=== PATIENT | female | born 1955 ===

== ENCOUNTER → 2018-02-13 | Outpatient (CLI) | payer BC ==
[~2018-02-13] MED LIST: BUSP15TA69 PO; DEXA0.5E5 PO; FLUO-177 PO; HYDR200T42 PO; LIDO4SOL3 TP; PANT40TA65 PO; ZOLP-350 PO
--- NOTE | 2018-02-13 17:27 | RADIOLOGY IMAGING REPORT ---
FACILITY: [facility] - [place] PATIENT NAME: Aida Russell : 1955 MR: [id number] V: [id number] EXAM DATE: ORDERING PHYSICIAN: DUANE CARLSON TECHNOLOGIST: Location: [facility] - [place] Patient: Aida Russell : 1955 Visit/Account:[id number] Date of Sevice: 02/13/2018 MRI left knee Indication: Chronic knee pain Comparison: None available. Technique: Multiplanar, multisequence MRI examination is performed of the left knee without contrast. Findings: Medial compartment: There is a full-thickness tear at the posterior root attachment medial meniscus. The articular cartilage surfaces are unremarkable. Lateral compartment: No discrete tear of the lateral meniscus. The articular cartilage surfaces are unremarkable. Patellofemoral compartment: Unremarkable patellar and trochlear surfaces. Bones and marrow: No evidence of abnormal marrow edema. No focal bony lesions. No bony erosions or periostitis. Ligaments and tendons: ACL and PCL are intact. The extensor mechanism is intact. There is mild edema superficial and deep to the MCL consistent with mild sprain. The iliotibial band, biceps femoris tendon, and the fibular collateral ligament is intact The popliteus tendon is also intact. Soft tissues: There is a moderate sized suprapatellar joint effusion seen. There is mild prepatellar edema. Small lobulated cystic structure extends into the proximal lateral h ead gastrocnemius suggesting ganglion cyst. IMPRESSION: 1. Complex medial meniscal tear. 2. Mild MCL sprain. Report Dictated By: Floyd Escobar MD at 02/13/2018 5:21 PM Report E-Signed By: Floyd Escobar MD at 02/13/2018 5:24 PM WSN:[id number]
== END ==
LOC: MRI 01:33
PROVIDERS: ATTEND Physician Assistant
DX: S83.232A Complex tear of medial meniscus, current injury, left knee, initial encounter (principal)

== ENCOUNTER → 2018-05-17 | Outpatient (CLI) | payer BC ==
--- NOTE | 2018-05-18 08:31 | RADIOLOGY IMAGING REPORT ---
[place]AC[place] [facility] [place]IENT NAME: KATE MCLAUGHLIN : [id number] MR: [id number] V: [id number] EXAM DATE: ORDERING PHYSICIAN: DAYNA OSULLIVAN TECHNOLOGIST: Mary Gonsalez PROCEDURE:BILATERAL DIGITAL SCREENING MAMMOGRAM WITH CAD ASSISTED INTERPRETATION & 3D TOMOSYNTHESIS COMPARISON:Prior mammogram 01/31/17. INDICATIONS:SCREENING FINDINGS: A small to moderate amount of fibroglandular tissue is seen throughout the breasts. The parenchymal pattern has remained stable allowing for difference in mammographic technique & patient positioning. There is no evidence of malignant appearing mass, malignant appearing calcifications or other secondary sign of malignancy in either breast. DIAGNOSTIC CATEGORY 1--NEGATIVE. RECOMMENDATIONS: ROUTINE MAMMOGRAM AND CLINICAL EVALUATION. IMPRESSION: BIRADS 1: Negative. No significant abnormality is seen. Dictated by: Felicity Serrato M.D. on 05/17/2018 at 16:46 Transcribed by: ARACELI on 05/18/2018 at 7:58 Approved by: Felicity Serrato M.D. on 05/18/2018 at 8:30 [facility]
== END ==
LOC: MAMO 02:47
PROVIDERS: ATTEND Family Medicine
DX: Z12.31 Encounter for screening mammogram for malignant neoplasm of breast (principal)
CPT/HCPCS: 77063; 77067

== ENCOUNTER → 2019-02-28 | Outpatient (CLI) | payer BC ==
[2019-02-28 10:36] LABS: PLATELET COUNT, AUTOMATED 292 K/uL (150-450)
== END ==
LOC: LAB 10:00
DX: Z79.899 Other long term (current) drug therapy (principal)
CPT/HCPCS: 36415; 82040; 82247; 82248; 82310; 82374; 82435; 82565; 82947; 84075; 84132; 84155; 84295; 84450; 84460; 84520; 85025; 86480